=== PATIENT | female | born 1970 ===

== ENCOUNTER → 2017-08-06 | Emergency (ER) | payer OTHER ==
[~2017-08-06] VITALS: Ht 167.6 cm; Wt 81.6 kg
[~2017-08-06] MED LIST: HYZAAR 50-12.1 UDTAB
== END | disposition home or self-care (01) ==
LOC: ER 08:30
DX: L02.612 Cutaneous abscess of left foot (principal)

== ENCOUNTER → 2017-08-19 | Emergency (ER) | payer OTHER ==
[~2017-08-19] VITALS: Ht 167.6 cm; Wt 81.6 kg
[~2017-08-19] MED LIST changes: +XANAX XR0.5 MG
== END | disposition home or self-care (01) ==
LOC: ER 13:40
DX: R19.7 Diarrhea, unspecified (principal)

== ENCOUNTER 2017-10-16 08:55 | Outpatient (CLI) | payer OTHER | END 2017-10-16 15:36 | disposition home or self-care (01) | LOC: SONOGRAMA 08:55 | DX: R10.9 Unspecified abdominal pain (principal) ==

== ENCOUNTER 2019-01-13 11:38 | Emergency (ER) | payer OTHER ==
[~2019-01-13] VITALS: Ht 167.6 cm; Wt 81.6 kg
== END 2019-01-13 16:26 | disposition home or self-care (01) ==
LOC: ER 11:38
DX: K52.9 Noninfective gastroenteritis and colitis, unspecified (principal)

== ENCOUNTER 2019-05-14 23:39 | Emergency (ER) | payer OTHER ==
[~2019-05-14] VITALS: Ht 162.6 cm; Wt 77.1 kg
== END 2019-05-15 10:11 | disposition home or self-care (01) ==
LOC: ER 23:39
DX: B34.9 Viral infection, unspecified (principal)

== ENCOUNTER 2019-09-02 09:08 | Emergency (ER) | payer OTHER ==
[~2019-09-02] VITALS: Ht 162.6 cm; Wt 70.3 kg
== END 2019-09-02 17:52 | disposition home or self-care (01) ==
LOC: ER 09:08
DX: I87.2 Venous insufficiency (chronic) (peripheral) (principal); M79.605 Pain in left leg; M79.604 Pain in right leg